=== PATIENT | male | born 1940 | race Caucasian/White ===

== ENCOUNTER → 2016-11-20 | Outpatient (CLI) | payer OTHER | LOC: FIMAGING 14:06 | PROVIDERS: ATTEND Family Medicine | DX: Z13.83 Encounter for screening for respiratory disorder NEC (principal); Z87.891 Personal history of nicotine dependence ==

== ENCOUNTER → 2018-02-11 | Outpatient (CLI) | payer OTHER ==
--- NOTE | 2018-02-11 13:40 | CPEEG ---
[f rep st] ELECTROENCEPHALOGRAM DATE OF STUDY: 02/11/2018 INTERPRETATION: Essentially normal EEG during wakefulness and sleep. There were no definite potentially epileptogenic abnormalities present during the recording. REPORT: This EEG contains 9-10 Hz alpha activity over the posterior head regions. There was no abnormal activation at rest or during photic stimulation. The patient intermittently became drowsy and fell asleep during the study. During drowsiness, the patient had bitemporal and bifrontal delta slowing on occasion during drowsiness. This can be a normal drowsy pattern in this age group. If there is any continued clinical concern, a repeat 4-hour video EEG could be indicated. /[id number]/MODL MTDD
== END ==
LOC: FCPNEURO 11:17
PROVIDERS: ATTEND Psychiatry & Neurology Neurology
DX: R41.3 Other amnesia (principal)

== ENCOUNTER → 2018-02-13 | Outpatient (CLI) | payer OTHER | LOC: FIMAGING 19:09 | PROVIDERS: ATTEND Psychiatry & Neurology Neurology | DX: G31.9 Degenerative disease of nervous system, unspecified (principal); R90.82 White matter disease, unspecified ==